=== PATIENT | female | born 1995 | race African-American/Black ===

== ENCOUNTER 2019-12-29 15:01 | Observation (INO) | payer OTHER, SELFPAY ==
[2019-12-29 15:30] VITALS: BP 103/56; PULSE 67; BMI 26.9
[2019-12-29 15:45] VITALS: BP 108/61; PULSE 82
[2019-12-29 16:00] VITALS: BP 108/61; PULSE 78
--- NOTE | 2019-12-29 18:58 | OBADM ---
This patient, Lindsey Machado, admitted to the OB room [facility] for observation. Patient/family oriented to hospital policies and general routines including ID bracelet, bed and alarms, visiting hours, pain management, procedures, bathroom and other care routines, personal items, smoking policy, room service/diet, and visiting hours. Patient/Family are encouraged to report perceived risks to care and to ask questions if they do not understand what they are told or what they should do.
== END 2019-12-29 17:18 | disposition home or self-care (01) ==
PROVIDERS: Admitting Provider Student in an Organized Health Care Education/Training Program; Visit Provider Student in an Organized Health Care Education/Training Program
DX: O60.00 Preterm labor without delivery, unspecified trimester (principal); Z3A.00 Weeks of gestation of pregnancy not specified
CPT/HCPCS: G0378; G0379

== ENCOUNTER 2020-02-03 09:54 | Outpatient (RCR) | payer OTHER, SELFPAY ==
[2020-02-03 12:35] VITALS: BP 113/63; PULSE 72
== END 2020-04-16 08:39 | disposition home or self-care (01) ==
LOC: ANHOBOP 09:54
PROVIDERS: Family Provider Obstetrics & Gynecology; Visit Provider Obstetrics & Gynecology
DX: P59.9 Neonatal jaundice, unspecified (principal)
CPT/HCPCS: 59025